=== PATIENT | female | born 1995 | race Caucasian/White ===

== ENCOUNTER 2021-01-08 08:04 | Emergency (ER) | payer MEDICAID ==
[~2021-01-08] VITALS: Ht 165.1 cm; Wt 50.3 kg
--- NOTE | 2021-01-08 08:19 | NUR ---
BB MOTHER TO ER, C/O SEVERE HEADACHE - WHEN SHE WOKE UP THIS MORNING
[2021-01-08] MEDS ORDERED: SUMATRIPTAN SUCCINATE 6 MG/0.5 ML VIAL SQ ONE ×2 (08:27→08:30)
[2021-01-08] MEDS ORDERED: ONDANSETRON HCL/PF 4 MG/2 ML VIAL ONE (08:27)
[2021-01-08] MEDS ORDERED: ONDANSETRON HCL/PF 4 MG/2 ML VIAL IVP ONE (08:30)
[2021-01-08 08:37] LABS: BASOPHILS # (AUTO) 0.1 /CMM (0.0-0.2); EOSINOPHILS % (AUTO) 7.9 % (0.0-6.0); HEMATOCRIT 40 % (33-45); HEMOGLOBIN 13.6 g/dL (11.5-14.8); LYMPHOCYTES # (AUTO) 1.6 /CMM (0.8-4.8); LYMPHOCYTES % (AUTO) 29.7 % (20.0-44.0); MEAN CORPUSCULAR HGB CONC 34 g/dl (31.0-36.0); MEAN CORPUSCULAR VOLUME 90 fL (82-100); MONOCYTES # (AUTO) 0.4 /CMM (0.1-1.30); NEUTROPHILS # (AUTO) 2.9 /CMM (1.8-8.9); NEUTROPHILS % (AUTO) 54.4 % (43.0-81.0); PLATELET COUNT (AUTO) 238 /CMM (150-450); RED BLOOD CELL COUNT(AUTO) 4.46 MIL/uL (4.0-5.2); WHITE BLOOD COUNT (AUTO) 5.3 K/uL (4.3-11.0)
[2021-01-08 09:01] LABS: CALCIUM, SERUM 9.1 mg/dL (8.5-10.1); CARBON DIOXIDE 25 mmol/L (21-32); CHLORIDE 104 mmol/L (98-107); CREATININE 0.8 mg/dL (0.6-1.3); GLUCOSE 114 mg/dL (74-106); POTASSIUM 3.9 mmol/L (3.5-5.1); SODIUM SERUM 141 mmol/L (136-145); UREA NITROGEN, BLOOD 12 mg/dL (7-18)
[2021-01-08 09:07] LABS: ALANINE AMINOTRANSFERASE 11 U/L (12-78); ALBUMIN 4.1 g/dL (3.4-5.0); ALKALINE PHOSPHATASE 45 U/L (46-116); ASPARTATE AMINOTRANSFERASE 12 U/L (15-37); BILIRUBIN,DIRECT 0.1 mg/dL (0.0-0.2); BILIRUBIN,TOTAL 0.2 mg/dL (0.2-1.0); TOTAL PROTEIN, SERUM 7.4 g/dL (6.4-8.2)
--- NOTE | 2021-01-08 09:23 | NUR ---
PER MD, WILL HOLD OFF CT SCAN AND WILL SEE HOW PATIENT RESPONDS WITH IMITREX 6MG SQ. MADE RADIOLOGY DEPT AWARE.
--- NOTE | 2021-01-08 10:17 | NUR ---
PATIENT REFUSED CT SCAN, MADE AWARE
[2021-01-08 10:54] VITALS: BP 126/82
--- NOTE | 2021-01-08 10:54 | NUR ---
IV removed. Catheter intact and site benign. Pressure and 4x4 applied to site. No bleeding noted.Patient discharged to home in stable condition. Written and verbal after care instructions given. Patient verbalizes understanding of instruction.
== END 2021-01-08 10:55 | disposition home or self-care (01) ==
LOC: EDBD 08:06 → ER 08:06
DX: R51.9 Headache, unspecified (principal); R55 Syncope and collapse; F20.0 Paranoid schizophrenia; F32.9 Major depressive disorder, single episode, unspecified; F41.9 Anxiety disorder, unspecified; G47.00 Insomnia, unspecified; F17.200 Nicotine dependence, unspecified, uncomplicated
CPT/HCPCS: 36415; 80048; 80076; 84484; 84702; 85025; 93005; 96372; 96374; 99284; J2405; J3030; J7030

== ENCOUNTER 2022-01-31 05:09 | Emergency (ER) | payer MEDICAID ==
[~2022-01-31] VITALS: Ht 162.6 cm; Wt 59.0 kg
--- NOTE | 2022-01-31 05:20 | NUR ---
BROUGHT IN BY AND LAURA FOR C/O ACUTE SI. PER LAURA, LOCKED HERSELF IN RESTROOM AND TOOK AN UNKNOWN AMOUNT OF ADDERAL IN ADDITION TO 5 MIXED DRINKS AND TWO SHOTS. PT STATES SHE IS "NOT WELL" BECAUSE SHE HAS BEEN UNABLE TO AFFORD HER PROZAC FOR ABOUT 2 MONTHS. PT CHANGED INTO A GOWN AND SUICIDE PRECAUTIONS IN PLACE. SITTER AT BEDSIDE.
[2022-01-31] MEDS ORDERED: LORAZEPAM INJ 2 MG/ML VIAL IVP STA (05:26)
[2022-01-31] MEDS ORDERED: ONDANSETRON HCL/PF 4 MG/2 ML VIAL ONE (05:28)
[2022-01-31] MEDS ORDERED: LORAZEPAM INJ 2 MG/ML VIAL IV ONE (05:30)
[2022-01-31] MEDS ORDERED: LORAZEPAM INJ 2 MG/ML VIAL ONE (05:39)
--- NOTE | 2022-01-31 05:40 | NUR ---
20G IV LINE ESTABLISHED AT [facility]. BLOOD DRAWN AND SENT TO LAB.
[2022-01-31 05:45] LABS: BASOPHILS % (AUTO) 0.6 % (0.0-2.0); EOSINOPHILS % (AUTO) 0.4 % (0.0-6.0); HEMATOCRIT 41 % (33-45); LYMPHOCYTES # (AUTO) 1.5 K/uL (0.8-4.8); LYMPHOCYTES % (AUTO) 18.8 % (20.0-44.0); MEAN CORPUSCULAR HGB CONC 34 g/dl (31.0-36.0); MEAN CORPUSCULAR VOLUME 90 fL (82-100); MONOCYTES # (AUTO) 0.3 K/uL (0.1-1.30); MONOCYTES % (AUTO) 3.4 % (2.0-12.0); NEUTROPHILS # (AUTO) 6.2 K/uL (1.8-8.9); NEUTROPHILS % (AUTO) 76.8 % (43.0-81.0); PLATELET COUNT (AUTO) 239 K/uL (150-450); RED BLOOD CELL COUNT(AUTO) 4.59 MIL/uL (4.0-5.2); WHITE BLOOD COUNT (AUTO) 8.1 K/uL (4.3-11.0)
[2022-01-31] MEDS ORDERED: ONDANSETRON HCL/PF 4 MG/2 ML VIAL IV ONE (06:00)
[2022-01-31 06:08] LABS: ALBUMIN 4.1 g/dL (3.4-5.0); BILIRUBIN,DIRECT 0.1 mg/dL (0.0-0.2); BILIRUBIN,TOTAL 0.2 mg/dL (0.2-1.0); CALCIUM, SERUM 7.8 mg/dL (8.5-10.1); CREATININE 0.6 mg/dL (0.6-1.3); POTASSIUM 3.5 mmol/L (3.5-5.1); TOTAL PROTEIN, SERUM 7.7 g/dL (6.4-8.2)
--- NOTE | 2022-01-31 06:15 | NUR ---
COVID TEST AND URINE BOTH COLLECTED AND SENT TO LAB
[2022-01-31] MEDS ORDERED: OLANZAPINE 10 MG VIAL IM ONE ×2 (06:28→06:30)
--- NOTE | 2022-01-31 07:55 | NUR ---
THE PATIENT IS RECEIVED IN ER BED #12. THE PATIENT SLEEPING, EASILY AROUSABLE TO TACTILE STIMULI. RESPIRATION REGULAR AND UNLABORED. WILL CONTINUE TO MONITOR THE PATIENT. SITTER AT THE BEDSIDE.
--- NOTE | 2022-01-31 13:32 | NUR ---
FAXED CLINICALS TO [facility] [FAX: [phone], TELE: [phone]], [facility] [FAX: [phone]], [facility] [FAX: [phone], TELE: [phone]], [facility] [FAX:[phone], TELE: [phone]].
--- NOTE | 2022-01-31 15:14 | NUR ---
Followed-up on [place], waiting for an available bed. Pt. does not meet requirement for [place]. Awaiting response from [facility] and [facility].
--- NOTE | 2022-02-01 02:23 | NUR ---
CALLED [facility] CALL
--- NOTE | 2022-02-01 05:00 | NUR ---
ONEYDA JACOBSEN AT BED SIDE SPEAKING TO THE PATIENT
[2022-02-01 05:45] VITALS: BP 112/60
--- NOTE | 2022-02-01 05:45 | NUR ---
Patient discharged to home in stable condition. Written and verbal after care instructions given. Patient verbalizes understanding of instruction.
== END 2022-02-01 05:46 | disposition home or self-care (01) ==
LOC: ER 05:12
DX: T43.622A Poisoning by amphetamines, intentional self-harm, initial encounter (principal); T51.0X2A Toxic effect of ethanol, intentional self-harm, initial encounter; Y92.039 Unspecified place in apartment as the place of occurrence of the external cause; F10.129 Alcohol abuse with intoxication, unspecified; Y90.7 Blood alcohol level of 200-239 mg/100 ml; F20.0 Paranoid schizophrenia; F41.9 Anxiety disorder, unspecified; F32.A Depression, unspecified; F17.210 Nicotine dependence, cigarettes, uncomplicated; R45.851 Suicidal ideations; Z20.822 Contact with and (suspected) exposure to COVID-19
CPT/HCPCS: 36415; 80048; 80076; 80143; 80307; 80320 ×2; 84703; 85025; 87426; 96372; 96374; 96375; 99285; 99406; C9803; J2060; J2405; J3490; G0480